=== PATIENT | female | born 1995 | race Caucasian/White ===

== ENCOUNTER → 2017-11-12 | Outpatient (REF) | payer OTHER ==
[2017-11-12 17:58] LABS: HCG, SERUM QUANTITATIVE 23288 MIU/ML
[2017-11-12 18:22] LABS: HEMATOCRIT 40.1 % (36.0-47.0); HEMOGLOBIN 13.5 g/dl (12.0-16.0); MEAN CORPUSCULAR HEMOGLOBIN 30.6 pg (27.0-33.0); MEAN CORPUSCULAR HGB CONC 33.7 g/dl (32.0-36.5); MEAN CORPUSCULAR VOLUME 90.9 fl (80.0-96.0); PLATELET COUNT, AUTOMATED 227 10^3/uL (150-450); RED BLOOD COUNT 4.41 10^6/uL (4.00-5.40); RED CELL DISTRIBUTION WIDTH 12.1 % (11.5-14.5); WHITE BLOOD COUNT 9.2 10^3/uL (4.0-10.0)
[2017-11-13 00:16] LABS: CHLAMYDIA DNA AMPLIFICATION NEGATIVE (NEGATIVE); GC DNA AMPLIFICATION NEGATIVE (NEGATIVE)
[2017-11-13 10:10] LABS: RUBELLA IgG QUALITATIVE IMMUNE (IMMUNE)
[2017-11-13 10:14] LABS: HBsAg Prenatal NEGATIVE (NEGATIVE)
[2017-11-13 10:39] LABS: HEPATITIS C VIRUS ABY INDEX 0.1 INDEX (<0.8)
[2017-11-13 10:40] LABS: HIV 1&2 SCREEN CENTAUR NEGATIVE (NEGATIVE)
== END ==
LOC: M LAB REF 16:40
DX: Z32.01 Encounter for pregnancy test, result positive (principal)
CPT/HCPCS: 86762

== ENCOUNTER → 2017-12-17 | Outpatient (REF) | payer OTHER | LOC: M LAB REF 13:16 | DX: Z34.00 Encounter for supervision of normal first pregnancy, unspecified trimester (principal) ==

== ENCOUNTER 2018-02-28 17:44 | Emergency (ER) | payer OTHER ==
[2018-02-28 20:24] LABS: KETONE, URINE AUTO RFX NEGATIVE (NEGATIVE); NITRITE, URINE AUTO RFX NEGATIVE (NEGATIVE); RBC, URINE AUTO RFX 2 /HPF (0-3); SPECIFIC GRAVITY UR AUTO RFX 1.008 (1.002-1.035); SQUAM EPITHELIAL CELL UR AURFX 1 /HPF (0-6); WBC, URINE AUTO RFX 10 /HPF (0-3)
[2018-02-28 20:34] LABS: LEUKOCYTE ESTERASE UR AUTO RFX 1+ (NEGATIVE)
[2018-02-28 20:36] LABS: BASO % 0.3 % (0.0-1.0); EOS # 0.1 10^3/uL (0.0-0.50); EOS % 0.4 % (0.0-3.0); HEMATOCRIT 31.8 % (36.0-47.0); HEMOGLOBIN 10.9 g/dl (12.0-15.5); IMMATURE GRANULOCYTE % 0.4 % (0-3.0); LYMPH # 2.4 10^3/uL (1.5-6.5); LYMPH % 21.1 % (24.0-44.0); MEAN CORPUSCULAR HEMOGLOBIN 32.1 pg (27.0-33.0); MEAN CORPUSCULAR HGB CONC 34.3 g/dl (32.0-36.5); MEAN CORPUSCULAR VOLUME 93.5 fl (80.0-96.0); MONO # 0.7 10^3/uL (0.0-0.8); MONO % 6.1 % (0.0-5.0); NEUTROPHILS % 71.7 % (36.0-66.0); PLATELET COUNT, AUTOMATED 200 10^3/uL (150-450); RED CELL DISTRIBUTION WIDTH 12.6 % (11.5-14.5); WHITE BLOOD COUNT 11.2 10^3/uL (4.0-10.0)
[2018-02-28 21:10] LABS: ANION GAP 6 MEQ/L (8-16); BLOOD UREA NITROGEN 6 MG/DL (7-18); CALCIUM LEVEL 8.1 MG/DL (8.5-10.1); CARBON DIOXIDE LEVEL 25 MEQ/L (21-32); CHLORIDE LEVEL 108 MEQ/L (98-107); CREATININE FOR GFR 0.55 MG/DL (0.55-1.30); FREE T4 1.06 NG/DL (0.78-1.33); GLUCOSE, FASTING 86 MG/DL (70-100); MAGNESIUM LEVEL 1.9 MG/DL (1.8-2.4); POTASSIUM SERUM 4.1 MEQ/L (3.5-5.1); SODIUM LEVEL 139 MEQ/L (136-145)
[2018-02-28] MEDS: CEPHALEXIN 500 MG CAP PO (21:26)
[2018-02-28] MEDS: NS 500 ML IV (21:26)
== END 2018-02-28 22:14 | disposition home or self-care (01) ==
LOC: M ED 17:44
DX: O99.512 Diseases of the respiratory system complicating pregnancy, second trimester (principal); O23.42 Unspecified infection of urinary tract in pregnancy, second trimester; Z3A.22 22 weeks gestation of pregnancy; Z79.899 Other long term (current) drug therapy; Z91.018 Allergy to other foods; Z88.0 Allergy status to penicillin
CPT/HCPCS: 71046

== ENCOUNTER → 2018-04-10 | Outpatient (CLI) | payer OTHER ==
[2018-04-10 13:08] LABS: HEMATOCRIT 31.2 % (36.0-47.0); HEMOGLOBIN 10.3 g/dl (12.0-15.5); MEAN CORPUSCULAR HEMOGLOBIN 31.3 pg (27.0-33.0); MEAN CORPUSCULAR VOLUME 94.8 fl (80.0-96.0); PLATELET COUNT, AUTOMATED 216 10^3/uL (150-450); RED BLOOD COUNT 3.29 10^6/uL (4.00-5.40); RED CELL DISTRIBUTION WIDTH 12.2 % (11.5-14.5); WHITE BLOOD COUNT 11.1 10^3/uL (4.0-10.0)
[2018-04-10 13:27] LABS: GLUCOSE CHALLENGE TEST 1 HOUR 125 MG/DL (LESS THAN 140)
== END ==
LOC: M LAB 11:40
DX: Z34.02 Encounter for supervision of normal first pregnancy, second trimester (principal)
CPT/HCPCS: 82950

== ENCOUNTER → 2018-06-02 | Outpatient (REF) | payer OTHER | LOC: M LAB REF 13:13 | DX: Z34.03 Encounter for supervision of normal first pregnancy, third trimester (principal) ==

== ENCOUNTER → 2018-06-10 | Outpatient (REF) | payer OTHER ==
[2018-06-10 13:56] LABS: HEMATOCRIT 33.5 % (36.0-47.0); HEMOGLOBIN 10.5 g/dl (12.0-15.5); MEAN CORPUSCULAR HEMOGLOBIN 28.7 pg (27.0-33.0); MEAN CORPUSCULAR HGB CONC 31.3 g/dl (32.0-36.5); MEAN CORPUSCULAR VOLUME 91.5 fl (80.0-96.0); PLATELET COUNT, AUTOMATED 219 10^3/uL (150-450); RED BLOOD COUNT 3.66 10^6/uL (4.00-5.40); RED CELL DISTRIBUTION WIDTH 13.2 % (11.5-14.5); WHITE BLOOD COUNT 10.1 10^3/uL (4.0-10.0)
[2018-06-10 14:54] LABS: CREATININE,RANDOM URINE < 13.0 MG/DL
[2018-06-10 14:54] LABS: TOTAL PROTEIN,RANDOM URINE < 5.0 MG/DL (0.0-12.0)
[2018-06-10 14:56] LABS: ALT/SGPT 13 U/L (12-78); AST/SGOT 17 U/L (7-37); BILIRUBIN,TOTAL 0.5 MG/DL (0.2-1.0); CREATININE FOR GFR 0.58 MG/DL (0.55-1.30); LDH LACTATE DEHYDROGENASE 178 U/L (84-246); URIC ACID 4.4 MG/DL (2.6-6.0)
== END ==
LOC: M LAB REF 13:34
DX: R03.0 Elevated blood-pressure reading, without diagnosis of hypertension (principal); Z34.03 Encounter for supervision of normal first pregnancy, third trimester

== ENCOUNTER 2018-06-28 21:09 | Inpatient (IN) | payer OTHER ==
[2018-06-29] MEDS ORDERED: LR 1,000 ML IV (03:31)
[2018-06-29 04:10] LABS: HEMATOCRIT 30.2 % (36.0-47.0); HEMOGLOBIN 9.7 g/dl (12.0-15.5); MEAN CORPUSCULAR HGB CONC 32.1 g/dl (32.0-36.5); MEAN CORPUSCULAR VOLUME 87.3 fl (80.0-96.0); PLATELET COUNT, AUTOMATED 201 10^3/uL (150-450); RED BLOOD COUNT 3.46 10^6/uL (4.00-5.40); RED CELL DISTRIBUTION WIDTH 13.4 % (11.5-14.5); WHITE BLOOD COUNT 12.8 10^3/uL (4.0-10.0)
[2018-06-29 04:33] LABS: ALT/SGPT 11 U/L (12-78); AST/SGOT 15 U/L (7-37); BILIRUBIN,TOTAL 0.7 MG/DL (0.2-1.0); CREATININE FOR GFR 0.67 MG/DL (0.55-1.30); LDH LACTATE DEHYDROGENASE 163 U/L (84-246); URIC ACID 4.9 MG/DL (2.6-6.0)
[2018-06-29] MEDS: OXYTOCIN DRIP 30 UNITS in APPROPRIATE DILUENT 1 EA IV ×2 (07:41→19:33)
[2018-06-29] MEDS: LACTATED RINGER'S 1000 ML IV (07:41)
[2018-06-29] MEDS ORDERED: FENTANYL 2MCG/ML ROPIVACAINE 0.2% IN 0.9% NACL 200ML IVBAG As Ordered (08:20)
[2018-06-29] MEDS ORDERED: ePHEDrine SULFATE 25 MG/5 ML(5MG/ML) SYRINGE As Ordered (09:14)
[2018-06-29] MEDS ORDERED: EPIDURAL/PCA KEYS XX (09:30)
[2018-06-29] MEDS ORDERED: EPIDURAL COMMENT XX (09:30)
[2018-06-29] MEDS ORDERED: ONDANSETRON 4MG/2ML VIAL (J2405) IV (09:30)
[2018-06-29] MEDS ORDERED: ePHEDrine SULFATE 25 MG/5 ML(5MG/ML) SYRINGE IV (09:30)
[2018-06-29] MEDS: FENTANYL/ROPIVACAINE/NACL BAG 200 ML EPIDURAL (09:30)
[2018-06-29] MEDS ORDERED: diphenhydrAMINE INJ 50MG/ML VIAL (J1200) IV (09:30)
[2018-06-29] MEDS ORDERED: LACTATED RINGER'S 1000 ML IV (09:30)
[2018-06-29] MEDS ORDERED: NALOXONE INJ 0.4 MG/1 ML VIAL (J2310) IV (09:30)
[2018-06-29] MEDS ORDERED: REFRIGERATOR IV KEYS XX (09:30)
[2018-06-29] MEDS ORDERED: MEASLES,MUMPS,RUBELLA VACCINE INJ (MMR-II) (90707) SC (14:30)
[2018-06-29] MEDS ORDERED: RHOGAM 300 MCG (1500 IU) INJ (J2790) IM (14:30)
[2018-06-29] MEDS ORDERED: METHYLERGONOVINE MALEATE 0.2 MG TAB PO (14:30)
[2018-06-29] MEDS ORDERED: DOCUSATE SODIUM 100 MG CAP PO (14:30)
[2018-06-29] MEDS ORDERED: DIBUCAINE 1% OINTMENT 30GM TOP (14:30)
[2018-06-29 14:38] LABS: CORD GAS ABE A -5.7; CORD GAS ABE V -4.1; CORD GAS HCO3 V 21.1 MEQ/L; CORD GAS O2 SAT V 70.2 %; CORD GAS PCO2 A 56.6 mmHg; CORD GAS PCO2 V 39.4 mmHg; CORD GAS PH A 7.226 UNITS; CORD GAS PH V 7.346 UNITS; CORD GAS PO2 A 20.6 mmHg; CORD GAS PO2 V 28.8 mmHg; CORD GAS SBC A 18.1 MEQ/L; CORD GAS SBC V 20.3 MEQ/L; CORD GAS TCO2 A 24.7 MEQ/L; CORD GAS TCO2 V 22.3 MEQ/L
[2018-06-29] MEDS: IBUPROFEN 800 MG TAB PO (18:55)
[2018-06-30] MEDS: IBUPROFEN 800 MG TAB PO ×2 (04:32→13:45)
[2018-06-30] MEDS: ACETAMINOPHEN 500 MG TAB PO (04:32)
[2018-06-30] MEDS: PRENATAL VITAMINS CHEWABLE TABLET PO (07:40)
[2018-07-01] MEDS: IBUPROFEN 800 MG TAB PO (08:00)
[2018-07-01] MEDS: PRENATAL VITAMINS CHEWABLE TABLET PO (08:00)
== END 2018-07-01 12:40 | disposition home or self-care (01) | DRG 775 ==
LOC: M LDO 21:09 → M LDI 06-29 03:35 → M OBS 06-29 17:06
PROC: 10E0XZZ Delivery of Products of Conception, External Approach (ICD-10-PCS; principal; 2018-06-29)
PROC: 0W8NXZZ Division of Female Perineum, External Approach (ICD-10-PCS; 2018-06-29)
PROC: 10907ZC Drainage of Amniotic Fluid, Therapeutic from Products of Conception, Via Natural or Artificial Opening (ICD-10-PCS; 2018-06-29)
DX: O69.82X0 Labor and delivery complicated by other cord entanglement, without compression, not applicable or unspecified (principal); Z37.0 Single live birth; Z3A.39 39 weeks gestation of pregnancy

== ENCOUNTER → 2018-08-06 | Outpatient (REF) | payer OTHER | LOC: M LAB REF 17:01 | DX: R35.0 Frequency of micturition (principal); R30.0 Dysuria ==